=== PATIENT | male | born 1970 | race Caucasian/White ===

== ENCOUNTER 2020-09-20 07:11 | Day surgery (SDC) | payer OTHER | END 2020-09-20 23:42 | disposition home or self-care (01) | LOC: ORD 07:11 → CT 07:11 → ORD 07:30 → CT 08:00 → ORD 23:42 | DX: R07.89 Other chest pain (principal); G47.33 Obstructive sleep apnea (adult) (pediatric); F17.210 Nicotine dependence, cigarettes, uncomplicated; Z88.1 Allergy status to other antibiotic agents; Z91.030 Bee allergy status; I51.7 Cardiomegaly; Z79.899 Other long term (current) drug therapy | CPT/HCPCS: 75574; Q9967 ==

== ENCOUNTER → 2022-12-22 | Outpatient (CLI) | payer OTHER | END | disposition home or self-care (01) | LOC: LAB SHORT 13:00 → LAB 13:00 | DX: R10.9 Unspecified abdominal pain (principal) | CPT/HCPCS: 87338 ==

== ENCOUNTER → 2023-01-04 | Outpatient (CLI) | payer OTHER ==
[2023-01-05 10:11] LABS: HIV AB/P24 AG SCREEN Non Reactive (Non Reactive)
[2023-01-06 01:07] LABS: CHLAMYDIA TRACHOMATIS, NAA Negative (Negative)
[2023-01-06 18:10] LABS: IMMUNOGLOBULIN A, QN, SERUM 322 mg/dL (90-386); T-TRANSGLUTAMINASE (TTG) IGA <2 U/mL (0-3); T-TRANSGLUTAMINASE (TTG) IGG <2 U/mL (0-5)
== END | disposition home or self-care (01) ==
LOC: LAB 12:49 → LAB SHORT 12:49
PROVIDERS: Family Medicine
DX: Z11.59 Encounter for screening for other viral diseases (principal); R10.9 Unspecified abdominal pain
CPT/HCPCS: 82784; 83516; 86258; 86364; 86592; 87389; 87491; 87591

== ENCOUNTER → 2023-02-05 | Outpatient (CLI) | payer OTHER | LOC: LAB 09:30 → LAB SHORT 09:30 | DX: R10.9 Unspecified abdominal pain (principal) | CPT/HCPCS: 87177; 87209 ==

== ENCOUNTER 2023-02-19 09:22 | Day surgery (SDC) | payer OTHER ==
[~2023-02-19] VITALS: Ht 177.8 cm; Wt 120.5 kg
--- NOTE | 2023-02-19 10:32 | NUR ---
02/19/23 1032 Consuelo Hernández FOUR ATTEMPTS AT IV. FIRST TWO ATTEMPTS AT IV BY MA IN RIGHT HAND MISSED. THIRD ATTEMPT AT IV BY RN IN LEFT HAND INFILTRATED. FOURTH ATTEMP AT IV BY RN IN RIGHT AC SUCCESSFU.
== END 2023-02-19 12:24 | disposition home or self-care (01) ==
LOC: ORSCSDS 09:22
PROVIDERS: Student in an Organized Health Care Education/Training Program
PROC: 0DBM8ZX Excision of Descending Colon, Via Natural or Artificial Opening Endoscopic, Diagnostic (ICD-10-PCS; principal; 2023-02-19 10:45)
PROC: 0DBL8ZX Excision of Transverse Colon, Via Natural or Artificial Opening Endoscopic, Diagnostic (ICD-10-PCS; principal; 2023-02-19 10:45)
PROC: 0DBK8ZX Excision of Ascending Colon, Via Natural or Artificial Opening Endoscopic, Diagnostic (ICD-10-PCS; principal; 2023-02-19 10:45)
PROC: 0DBN8ZX Excision of Sigmoid Colon, Via Natural or Artificial Opening Endoscopic, Diagnostic (ICD-10-PCS; principal; 2023-02-19 10:45)
DX: Z12.11 Encounter for screening for malignant neoplasm of colon (principal); Z86.010 Personal history of colon polyps; R13.10 Dysphagia, unspecified; K29.80 Duodenitis without bleeding; K44.9 Diaphragmatic hernia without obstruction or gangrene; K20.90 Esophagitis, unspecified without bleeding; D12.5 Benign neoplasm of sigmoid colon; D12.4 Benign neoplasm of descending colon; D12.2 Benign neoplasm of ascending colon; D12.3 Benign neoplasm of transverse colon; K57.30 Diverticulosis of large intestine without perforation or abscess without bleeding; K64.4 Residual hemorrhoidal skin tags; I10 Essential (primary) hypertension; J44.9 Chronic obstructive pulmonary disease, unspecified; E66.9 Obesity, unspecified; Z68.38 Body mass index [BMI] 38.0-38.9, adult; Z79.899 Other long term (current) drug therapy
CPT/HCPCS: 88305; 88342; J2001; J2250; J2405; J2704; J7120

== ENCOUNTER → 2023-05-29 | Outpatient (CLI) | payer OTHER | LOC: LAB 13:11 → LAB SHORT 13:11 | DX: R10.9 Unspecified abdominal pain (principal) | CPT/HCPCS: 87086 ==

== ENCOUNTER 2023-08-03 11:28 | Emergency (ER) | payer OTHER ==
[~2023-08-03] VITALS: Ht 177.8 cm; Wt 117.9 kg
[2023-08-03 12:08] LABS: Source, Urine Clean Catch
[2023-08-03 12:14] LABS: Appearance, Urine Clear (Clear); Bilirubin, Urine Neg (Neg); Blood, Urine 4+ (Neg); Glucose Qualitative, Urine Neg (Neg); Ketones, Urine Neg (Neg); Leukocyte Esterase, Urine Neg (Neg); Nitrite, Urine Neg (Neg); Protein, Urine Neg (Neg); Specific Gravity, Urine 1.015 (1.003-1.022); Urobilinogen, Urine NORM (Normal)
[2023-08-03 12:15] VITALS: BP 130/75
[2023-08-03 12:15] LABS: BASOPHILS ABSOLUTE AUTO 0.06 K/mm3 (0.00-0.23); BASOPHILS PERCENT AUTO 0 % (0-2); EOSINOPHILS ABSOLUTE AUTO 0.15 K/mm3 (0.00-0.68); EOSINOPHILS PERCENT AUTO 1 % (0-6); Hematocrit 47.4 % (37.0-53.0); Hemoglobin 16.1 g/dL (13.5-17.5); IMMATURE GRAN ABSOLUTE AUTO 0.05 K/mm3 (0.00-0.10); IMMATURE GRAN PERCENT AUTO 0 % (0-1); LYMPHOCYTES ABSOLUTE AUTO 3.23 K/mm3 (0.84-5.20); LYMPHOCYTES PERCENT AUTO 23 % (21-46); MONOCYTES ABSOLUTE AUTO 1.01 K/mm3 (0.16-1.47); MONOCYTES PERCENT AUTO 7 % (4-13); Mean Corpuscular HGB 29.1 pg (26.0-34.0); Mean Corpuscular Volume 86 fL (80-100); Mean Platelet Volume 9.6 fL (9.1-12.4); NEUTROPHILS PERCENT AUTO 68 % (41-73); Platelet Count 320 K/mm3 (150-400); RDW Coefficient Variation 12.6 % (11.7-14.2); RDW Standard Deviation 39.8 fL (35.1-46.3); Red Blood Cell Count 5.53 M/mm3 (4.30-5.90)
[2023-08-03 12:20] LABS: Color, Urine Pale Yellow (P-Yellow)
[2023-08-03 12:23] LABS: Red Blood Cells, Urine 50-100 /hpf (0-2)
[2023-08-03 12:24] LABS: Squamous Epithelial Cells Not Seen /hpf (Few); White Blood Cells, Urine 0-2 /hpf (0-5)
[2023-08-03 12:25] LABS: Bacteria Not Seen /hpf
[2023-08-03] MEDS ORDERED: TAMSULOSIN HCL0.4 M1 PO (12:27)
[2023-08-03] MEDS ORDERED: ALPRAZOLAM0.5 M1 PO (12:27)
[2023-08-03] MEDS ORDERED: HYDHCL25 PO (12:27)
[2023-08-03] MEDS ORDERED: OMEP20ER PO (12:28)
[2023-08-03 12:30] LABS: Albumin, Blood 3.5 g/dL (3.4-5.0); Bilirubin, Total 0.3 mg/dL (0.1-1.0); Bun/Creatinine Ratio 12.6 (12.0-20.0); Calcium, Blood 8.8 mg/dL (8.5-10.1); Creatinine, Blood 1.11 mg/dL (0.60-1.20); Globulin, Blood 3.6 g/dL (2.2-4.0); Potassium, Blood 3.7 mmol/L (3.5-5.5); Total Protein, Blood 7.1 g/dL (6.4-8.2)
[2023-08-03] MEDS ORDERED: IBUP600 PO (13:36)
[2023-08-03] MEDS ORDERED: ONDA4ODT MM (13:36)
[2023-08-03] MEDS ORDERED: HYDR1TAB94 PO (13:36)
== END 2023-08-03 13:50 | disposition home or self-care (01) ==
LOC: ER 11:28
PROVIDERS: Physician Assistant
DX: N13.2 Hydronephrosis with renal and ureteral calculous obstruction (principal)
CPT/HCPCS: 74176; 80053; 81001; 85025; 96374; 96375; 99284-25; J1885; J2405

== ENCOUNTER → 2023-11-15 | Outpatient (CLI) | payer OTHER ==
[~2023-11-15] MED LIST: ALPRAZOLAM0.5 M1 PO; HYDHCL25 PO; HYDR1TAB94 PO; IBUP600 PO; OMEP20ER PO; ONDA4ODT MM; TAMSULOSIN HCL0.4 M1 PO
[2023-11-15 17:05] LABS: BASOPHILS ABSOLUTE AUTO 0.05 K/mm3 (0.00-0.23); BASOPHILS PERCENT AUTO 1 % (0-2); EOSINOPHILS ABSOLUTE AUTO 0.19 K/mm3 (0.00-0.68); EOSINOPHILS PERCENT AUTO 2 % (0-6); Hematocrit 52.3 % (37.0-53.0); Hemoglobin 17.9 g/dL (13.5-17.5); IMMATURE GRAN ABSOLUTE AUTO 0.03 K/mm3 (0.00-0.10); IMMATURE GRAN PERCENT AUTO 0 % (0-1); LYMPHOCYTES ABSOLUTE AUTO 3.39 K/mm3 (0.84-5.20); LYMPHOCYTES PERCENT AUTO 36 % (21-46); MONOCYTES ABSOLUTE AUTO 0.62 K/mm3 (0.16-1.47); MONOCYTES PERCENT AUTO 7 % (4-13); Mean Corpuscular HGB 29.5 pg (26.0-34.0); Mean Corpuscular HGB Conc 34.2 g/dL (31.5-36.5); Mean Corpuscular Volume 86 fL (80-100); Mean Platelet Volume 10.3 fL (9.1-12.4); NEUTROPHILS ABSOLUTE AUTO 5.12 K/mm3 (1.96-9.15); NEUTROPHILS PERCENT AUTO 55 % (41-73); Platelet Count 327 K/mm3 (150-400); RDW Coefficient Variation 12.7 % (11.7-14.2); RDW Standard Deviation 39.8 fL (35.1-46.3); Red Blood Cell Count 6.07 M/mm3 (4.30-5.90)
[2023-11-15 17:17] LABS: C-REACTIVE PROTEIN, EXT RANGE 0.482 mg/dL (0.000-0.300)
[2023-11-15 17:21] LABS: Albumin, Blood 4.1 g/dL (3.4-5.0); Albumin/Globulin Ratio 1.1 (0.8-1.8); Bilirubin, Total 0.4 mg/dL (0.1-1.0); Bun/Creatinine Ratio 17.6 (12.0-20.0); Calcium, Blood 9.5 mg/dL (8.5-10.1); Creatinine, Blood 0.79 mg/dL (0.60-1.20); Globulin, Blood 3.8 g/dL (2.2-4.0); Total Protein, Blood 7.9 g/dL (6.4-8.2)
[2023-11-15 17:39] LABS: CHOL/HDL RATIO 5.6; Cholesterol 281 mg/dL (50-200); HDL Cholesterol 50 mg/dL (>39); Low Density Lipoprotein Chol 198 mg/dL (0-110); Triglycerides 165 mg/dL (30-160); Very Low Density Lipoprot Chol 33 mg/dL (6-32)
== END ==
LOC: LAB 15:52 → LAB SHORT 15:52
PROVIDERS: Nurse Practitioner Family
DX: R10.84 Generalized abdominal pain (principal)
CPT/HCPCS: 80053; 80061; 83690; 85025; 86140

== ENCOUNTER → 2023-11-15 | Outpatient (CLI) | payer OTHER | END | disposition home or self-care (01) | LOC: LAB SHORT 15:10 | DX: R10.84 Generalized abdominal pain (principal) | CPT/HCPCS: 87086 ==

== ENCOUNTER → 2023-12-13 | Outpatient (CLI) | payer OTHER ==
[2023-12-20 15:08] LABS: CALCIUM, URINE - PER 24H 228 mg/d (100-250); CALCIUM, URINE - PER VOLUME 17.5 mg/dL; CHLORIDE, URINE - PER 24H 191 mmol/d (140-250); CHLORIDE, URINE - PER VOLUME 147 mmol/L; CITRIC ACID, URINE - PER 24H 662 mg/d (320-1240); CITRIC ACID,URINE - PER VOLUME 509 mg/L; CREATININE, URINE - PER 24H 2210 mg/d (800-2100); CREATININE, URINE - PER VOLUME 170 mg/dL; HOURS COLLECTED 24 hr; MAGNESIUM, URINE - PER VOLUME 12.1 mg/dL; MAGNESIUM, URINE PER 24H 157 mg/d (12-199); OXALATE, URINE - PER 24H 27 mg/d (16-49); OXALATE, URINE - PER VOLUME 21 mg/L; PH, URINE 6.36 (5.00-7.50); PHOSPHORUS, URINE - PER 24H 1287 mg/d (400-1300); PHOSPHORUS, URINE - PER VOLUME 99 mg/dL; POTASSIUM, URINE - PER 24H 65 mmol/d (25-125); POTASSIUM, URINE - PER VOLUME 50 mmol/L; SODIUM, URINE - PER 24H 209 mmol/d (51-286); SODIUM, URINE - PER VOLUME 161 mmol/L; SULFATE, URINE - PER 24H 31 mmol/d (6-30); SULFATE, URINE - PER VOLUME 24 mmol/L; TOTAL VOLUME 1300 mL; URIC ACID, URINE - PER 24H 760 mg/d (250-750); URIC ACID, URINE - PER VOLUME 58.5 mg/dL; URINE SUPERSATURATION INTERP Abnormal; URINE SUPERSATURATION, CAHPO4 5.23; URINE SUPERSATURATION, CAOX 5.27; URINE SUPERSATURATION, UA CALC 0.39
== END ==
LOC: LAB 10:22 → LAB SHORT 10:22 → EDSTATUS 10-29 12:30 → LAB FUT 10-29 12:30
PROVIDERS: Physician Assistant
DX: N20.0 Calculus of kidney (principal)
CPT/HCPCS: 81003; 82131; 82140; 82340; 82436; 82507; 82570; 83735; 83935; 83945; 84105; 84133; 84300; 84392; 84560

== ENCOUNTER 2024-05-06 12:03 | Day surgery (SDC) | payer OTHER ==
[~2024-05-06] VITALS: Ht 180.3 cm; Wt 120.7 kg
[~2024-05-06 12:03] MED LIST changes: +Lactated Ringer's 1,000 ML IV ONE
[2024-05-06] MEDS ORDERED: Lactated Ringer's 1,000 ML IV ONE (12:39)
[2024-05-06] MEDS ORDERED: Lidocaine HCl 1% 30 ML SDV ONE (13:09)
[2024-05-06] MEDS ORDERED: propofoL 50 ML IV ONE (13:09)
--- NOTE | 2024-05-06 13:47 | NUR ---
05/06/24 [id number] Anai Swain PT UPDATED IN DELAY IN START TIME DUE TO ANESTHESIA DOING CASES IN ANOTHER ENDO ROOM. BED IN LOW, LOCKED POSITON, CALL LIGHT IN REACH.
[2024-05-06 15:07] VITALS: BP 137/85
--- NOTE | 2024-05-06 15:14 | NUR ---
05/06/24 [email or web address] Natalia Mojica 1435: PATIENT REPORTS PAIN 4/10 BUT STATES TOLERABLE, RN ENCOURAGED PATIENT TO PASS GAS IN ORDER TO ALLEVIATE PRESSURE FEELING.
== END 2024-05-06 15:02 | disposition home or self-care (01) ==
LOC: ORSCSDS 12:03
PROVIDERS: Specialist
PROC: 0DJD8ZZ Inspection of Lower Intestinal Tract, Via Natural or Artificial Opening Endoscopic (ICD-10-PCS; principal; 2024-05-06 13:30)
DX: Z12.11 Encounter for screening for malignant neoplasm of colon (principal); Z86.010 Personal history of colon polyps; K64.8 Other hemorrhoids; K57.30 Diverticulosis of large intestine without perforation or abscess without bleeding; E78.5 Hyperlipidemia, unspecified; G47.33 Obstructive sleep apnea (adult) (pediatric); E66.9 Obesity, unspecified; Z68.37 Body mass index [BMI] 37.0-37.9, adult
CPT/HCPCS: J2704; J7120